=== PATIENT | female | born 1970 | race Two or more races ===

== ENCOUNTER 2017-12-09 08:57 | Emergency (ER) | payer MEDICAID ==
[~2017-12-09] VITALS: Ht 157.5 cm; Wt 53.5 kg
--- NOTE | 2017-12-09 09:05 | NUR ---
47 YO FEMALE BB FRIEND. PATIENT IS ALERT AND ORIENTED X 3, C/O LOWER BACK PAIN. PATIENT DENIES TRAUMA, STATES THE PAIN IS ON AND OFF X 1 MONTHS, HAS BEEN TO THE URGENT CARE WITH LITTLE RELIEF. PATIENT AMBULATED TO ER BED, SKIN WARM AND DRY, RESP EVEN AND UNLABORED. AWAITING ORDERS FROM PROVIDER, WILL CONTINUE TO MONITOR
[2017-12-09] MEDS ORDERED: MORPHINE SULFATE INJ 4 MG/ML DISP.SYRIN ONE (09:27)
[2017-12-09] MEDS ORDERED: ONDANSETRON HCL/PF 4 MG/2 ML VIAL ONE (09:27)
[2017-12-09] MEDS ORDERED: ONDANSETRON HCL/PF 4 MG/2 ML VIAL IVP ONE (09:30)
[2017-12-09] MEDS ORDERED: IV NS 0.9% 500 ML BAG IV ONE (09:30)
[2017-12-09] MEDS ORDERED: MORPHINE SULFATE INJ 2 MG/ML DISP.SYRIN IV ONE (09:30)
[2017-12-09 09:35] LABS: BASOPHILS # (AUTO) 0.1 /CMM (0.0-0.2); EOSINOPHILS % (AUTO) 5.6 % (0.0-6.0); HEMATOCRIT 46 % (33-45); HEMOGLOBIN 15.9 g/dL (11.5-14.8); LYMPHOCYTES # (AUTO) 2.7 /CMM (0.8-4.8); MEAN CORPUSCULAR HGB CONC 35 g/dl (31.0-36.0); MEAN CORPUSCULAR VOLUME 90 fL (82-100); MONOCYTES # (AUTO) 0.5 /CMM (0.1-1.30); MONOCYTES % (AUTO) 8.1 % (2.0-12.0); NEUTROPHILS # (AUTO) 2.7 /CMM (1.8-8.9); NEUTROPHILS % (AUTO) 42.3 % (43.0-81.0); PLATELET COUNT (AUTO) 265 /CMM (150-450); RDW COEFFICIENT OF VARIATION 11.7 (11.5-15.0); RED BLOOD CELL COUNT(AUTO) 5.13 MIL/uL (4.0-5.2); WHITE BLOOD COUNT (AUTO) 6.4 K/uL (4.3-11.0)
[2017-12-09 09:45] LABS: CALCIUM, SERUM 9.5 mg/dL (8.5-10.1); CREATININE 0.8 mg/dL (0.6-1.3); POTASSIUM 3.6 mmol/L (3.5-5.1)
[2017-12-09 09:46] LABS: APPEARANCE,URINE Clear (CLEAR); BILIRUBIN,URINE Negative (NEGATIVE); BLOOD, URINE Trace-lysed Ery/uL (NEGATIVE); COLOR,URINE Yellow (YELLOW); KETONES,URINE Negative (NEGATIVE); LEUKOCYTE ESTERASE ,URINE Negative (NEGATIVE); NITRITE, URINE Negative (NEGATIVE); PROTEIN,URINE Negative (NEGATIVE); UGLUCOSE Negative (NEGATIVE); UROBILINOGEN,URINE 0.2 EU/dL (0.2)
[2017-12-09 09:51] LABS: ALBUMIN 4.2 g/dL (3.4-5.0); BILIRUBIN,DIRECT 0.1 mg/dL (0.0-0.2); BILIRUBIN,TOTAL 0.4 mg/dL (0.2-1.0); TOTAL PROTEIN, SERUM 8.4 g/dL (6.4-8.2)
[2017-12-09 09:53] LABS: BACTERIA,URINE None seen /HPF (None Seen); SQUAMOUS EPITHELIAL CELL,UR Few /HPF (None Seen); WBC,URINE 0-3 /HPF (0-3)
[2017-12-09 11:12] VITALS: BP 122/18
--- NOTE | 2017-12-09 11:13 | NUR ---
Patient discharged to home in stable condition. Written and verbal after care instructions given. Patient verbalizes understanding of instruction.
== END 2017-12-09 11:13 | disposition home or self-care (01) ==
LOC: ER 08:59
DX: M54.5 Low back pain (principal); N83.202 Unspecified ovarian cyst, left side
CPT/HCPCS: 36415; 76856-TC; 80048-TC; 80076-TC; 81000-TC; 83690-TC; 84703-TC; 85025-TC; A4606; J2270; J2405; J7040; Z7610

== ENCOUNTER 2018-04-28 10:34 | Emergency (ER) | payer MEDICAID ==
[~2018-04-28] VITALS: Ht 157.5 cm; Wt 53.5 kg
[2018-04-28 10:53] VITALS: BP 100/73
[2018-04-28] MEDS ORDERED: KETOROLAC TROMETHAMINE INJ 60 MG/2 ML VIAL IM ONE ×2 (11:30→11:31)
== END 2018-04-28 11:51 | disposition home or self-care (01) ==
LOC: ER 10:35
DX: M77.11 Lateral epicondylitis, right elbow (principal); L30.9 Dermatitis, unspecified
CPT/HCPCS: 96372; 99283; A4606; J1885; Z7610

== ENCOUNTER 2018-12-07 19:24 | Emergency (ER) | payer MEDICAID ==
[~2018-12-07] VITALS: Ht 157.5 cm; Wt 63.5 kg
[2018-12-07 19:28] VITALS: BP 152/81
== END 2018-12-07 20:28 | disposition home or self-care (01) ==
LOC: ER 19:25
DX: J30.9 Allergic rhinitis, unspecified (principal)